=== PATIENT | male | born 1980 | race Caucasian/White ===

== ENCOUNTER 2016-12-16 15:29 | Emergency (ER) | payer MEDICAID ==
[2016-12-16 15:32] VITALS: BP 125/72; PULSE 68; RESP 16; TEMP 97.7; O2SAT 96
--- NOTE | 2016-12-16 16:13 | EDPHY ---
H & P Stated Complaint: Fell skateboarding and hurt R hand yesterday HPI/ROS: CHIEF COMPLAINT: Right hand pain, skateboarding injury HISTORY OF PRESENT ILLNESS: Patient was skateboarding yesterday when he fell on an outstretched hand. He noted sudden onset of pain at the base of the thumb. He said he felt as though his "thumb bone was sticking out, so I pushed it back in." He points to the 1st metacarpal when describing this. Mild-to- moderate pain at rest. More severe when palpating or moving. No radiating pain. No snuffbox tenderness. No pain in the ipsilateral elbow or shoulder. No head or neck injury. No radiating pain. No sensory changes. No back or chest pain. No other associated complaints or modifying factors. PRIOR ORTHO INJURIES: None ESTABLISHED ORTHOPEDIST: None REVIEW OF SYSTEMS: Ten systems reviewed and are negative unless otherwise noted in the HPI EXAMINATION General Appearance: Alert, no distress Cardiovascular: Pulses normal throughout. Symmetric radial pulses 2+. Brisk cap refill Neurological: A&O, sensory symmetric, strength symmetric. Normal 2 point sensation. Skin: Warm and dry, no rash. No lacerations abrasions or contusions. Extremities: Tenderness to palpation at the base of the right thumb over the MCP joint. There is also pain over the 1st metacarpal. There is no snuffbox tenderness. No crepitus. No deformity. Some edema over the base of the right thumb. No lacerations or abrasions. Range of motion of all fingers fully intact with good strength of the interossei. Range of motion of the right elbow and shoulder fully intact. Neurovascular intact distal to the injury Psychiatric: Mood and affect normal DIFFERENTIAL DIAGNOSES: Including but not limited to fracture, sprain, strain, hematoma, dislocation MDM: 4:00 p.m. Mechanical fall on the right hand yesterday. He has got pain at the base of the right thumb. I do not appreciate any fracture on the x-ray. The official interpretation is pending at this time. 4:20 p.m. X-ray has been read as no acute findings by radiologist. Discharged home with thumb spica. Referral to hand surgeon for definitive care. I do not suspect a scaphoid fracture given his history and exam, but he has been placed in the thumb spica for prophylaxis. Return to ER precautions discussed. He is comfortable this plan. He is discharged home neurovascular intact. ED Precautions: Worsening pain. Erythema, edema, cyanosis, pallor, paresthesia or anesthesia. SUPERVISION: This patient was independently evaluated without direct examination by the attending physician. Case was discussed with attending physician. Source: Patient Exam Limitations: No limitations - Personal History Current Tetanus Diphtheria and Acellular Pertussis (TDAP): Yes - Medical/Surgical History Other PMH: neg - Social History Smoking Status: Current every day smoker Constitutional: Initial Vital Signs Temperature (C) 97.7 F 12/16/16 15:30 Heart Rate 68 12/16/16 15:30 Respiratory Rate 16 12/16/16 15:30 Blood Pressure 125/72 H 12/16/16 15:30 O2 Sat (%) 96 12/16/16 15:30 O2 Delivery Mode Room Air Allergies/Adverse Reactions: No Known Allergies Allergy (Unverified 12/16/16 15:32) Home Medications: Medication Instructions Recorded Acetaminophen/Codeine 300/30Mg 1 each PO Q6 PRN #10 tab 12/16/16 [Tylenol #3 (*)] Medical Decision Making - Diagnostics Imaging Results: Imaging Impressions Hand X-Ray 12/16/16 15:33 Impression: Negative. No acute fracture. Departure - Departure Disposition: Home, Routine, Self-Care Clinical Impression: Thumb sprain Qualifiers: Encounter type: initial encounter Sprain of finger site: metacarpophalangeal joint Laterality: right Qualified Code(s): S63.641A - Sprain of metacarpophalangeal joint of right thumb, initial encounter Condition: Good Instructions: Skier's Thumb (ED), Finger Sprain (ED) Additional Instructions: 1. Keep the splint in place at all times until seen by Orthopedics 2. Return here for any numbness, weakness or increasing pain 3. [id number] ibuprofen or Aleve as needed Follow up with hand surgeon for definitive care Referrals: NONE *PRIMARY CARE P,. [Primary Care Provider] - As per Instructions Haile Mae MD [Medical Doctor] - As per Instructions Prescriptions: Acetaminophen/Codeine 300/30Mg [Tylenol #3 (*)] 1 each PO Q6 PRN #10 tab PRN Reason: Pain, Mild
== END 2016-12-16 16:30 | disposition home or self-care (01) ==
DX: S63.641A Sprain of metacarpophalangeal joint of right thumb, initial encounter (principal); F17.200 Nicotine dependence, unspecified, uncomplicated; V00.131A Fall from skateboard, initial encounter; Y99.8 Other external cause status; Y93.51 Activity, roller skating (inline) and skateboarding
CPT/HCPCS: L3908

== ENCOUNTER 2017-09-13 12:18 | Emergency (ER) | payer MEDICAID ==
[2017-09-13] MEDS ORDERED: NS 1,000 ML IV ONE (13:46)
--- NOTE | 2017-09-13 13:46 | EDPHY ---
H & P Stated Complaint: abdominal pain last 2-3 weeks, bloody stool last few days Time Seen by Provider: 09/13/17 13:45 HPI/ROS: CHIEF COMPLAINT: Abdominal pain, bloody stool x1 HISTORY OF PRESENT ILLNESS: The patient presents the ED with a 2-3 week history of generalized intermittent abdominal pain. The patient did have an episode of bloody stool x1 yesterday. The patient reports a remote history of colitis in his 20s. The patient is not under the care of a regular physician. He takes no regular medications. The patient denies any vomiting or alcohol use. The patient denies prior history of surgery. The patient reportedly has been using a fair amount of Advil for foot pain over the past month. REVIEW OF SYSTEMS: A comprehensive 10 point review of systems is otherwise negative aside from elements mentioned in the history of present illness. Source: Patient Exam Limitations: No limitations - Personal History Current Tetanus/Diphtheria Vaccine: Unsure Current Tetanus Diphtheria and Acellular Pertussis (TDAP): Unsure - Medical/Surgical History Hx Asthma: No Hx Chronic Respiratory Disease: No Hx Diabetes: No Hx Cardiac Disease: No Hx Renal Disease: No Hx Cirrhosis: No Hx Alcoholism: No Hx HIV/AIDS: No Hx Splenectomy or Spleen Trauma: No Other PMH: colitis - Social History Smoking Status: Current every day smoker - Physical Exam Exam: General Appearance: Alert, no distress Eyes: Pupils equal and round no pallor or injection ENT, Mouth: Mucous membranes moist Respiratory: There are no retractions, lungs are clear to auscultation Cardiovascular: Regular rate and rhythm Gastrointestinal: Minimal epigastric tenderness Neurological: 5/5 strength noted all 4 extremities Skin: Warm and dry, no rashes Musculoskeletal: Neck is supple nontender Extremities: symmetrical, full range of motion Constitutional: Initial Vital Signs Temperature (C) 37 C 09/13/17 12:24 Heart Rate 84 09/13/17 12:24 Respiratory Rate 20 09/13/17 12:24 Blood Pressure 127/88 H 09/13/17 12:24 O2 Sat (%) 96 09/13/17 12:24 O2 Delivery Mode Room Air Allergies/Adverse Reactions: No Known Allergies Allergy (Verified 09/13/17 12:24) Home Medications: Medication Instructions Recorded levOFLOXACIN [Levaquin] 500 mg PO DAILY #10 tab 09/13/17 metroNIDAZOLE [Flagyl 500 mg (RX)] 500 mg PO TID #30 tab 09/13/17 Medical Decision Making - Diagnostics Imaging Results: Imaging Impressions Abdomen CT 09/13/17 15:11 Impression: 1. Equivocal wall thickening in the descending colon, which could be related to colitis or underdistention. 2. Additional findings, as above. Findings discussed with Juarez Carcamo M.D., on September 13, 2017 at 1557. ED Course/Re-evaluation: The patient presents to the ED for evaluation of several weeks of intermittent abdominal pain and 1 episode of bloody stool. The patient was noted to be hemodynamically stable in the emergency department. He is in no acute distress. He has no evidence of critical anemia. I found his abdominal examination did demonstrate mild tenderness in the epigastric region. The patient was taken for CT scan of the abdomen pelvis which demonstrates equivocal colitis. The patient will be started on antibiotics. The patient has been instructed that he needs to follow up with Gastroenterology for further evaluation given his history of colitis in hematochezia. He has not had regular follow-up in the past 10 years. The patient is well-appearing and in no acute distress. There is no evidence of an acute surgical abdomen. The patient will be discharged home with customary aftercare instructions, Gastroenterology referral and return precautions. Differential Diagnosis: Differential diagnosis considered includes appendicitis, perforation, obstruction, colitis - Data Points Laboratory Results: Laboratory Results 09/13/17 14:15 09/13/17 14:15 09/13/17 09/13/17 14:15 14:15 WBC 6.39 10^3/uL 10^3/uL (3.80-9.50) RBC 4.92 10^6/uL 10^6/uL (4.40-6.38) Hgb 15.9 g/dL g/dL (13.7-17.5) Hct 45.0 % % (40.0-51.0) MCV 91.5 fL fL (81.5-99.8) MCH 32.3 pg pg (27.9-34.1) MCHC 35.3 g/dL g/dL (32.4-36.7) RDW 12.0 % % (11.5-15.2) Plt Count 266 10^3/uL 10^3/uL (150-400) MPV 8.8 fL fL (8.7-11.7) Neut % (Auto) 60.0 % % (39.3-74.2) Lymph % (Auto) 26.8 % % (15.0-45.0) [place] % (Auto) 8.9 % % (4.5-13.0) Eos % (Auto) 3.4 % % (0.6-7.6) Baso % (Auto) 0.6 % % (0.3-1.7) Nucleat RBC Rel Count 0.0 % % (0.0-0.2) Absolute Neuts (auto) 3.83 10^3/uL 10^3/uL (1.70-6.50) Absolute Lymphs (auto) 1.71 10^3/uL 10^3/uL (1.00-3.00) Absolute Monos (auto) 0.57 10^3/uL 10^3/uL (0.30-0.80) Absolute Eos (auto) 0.22 10^3/uL 10^3/uL (0.03-0.40) Absolute Basos (auto) 0.04 10^3/uL 10^3/uL (0.02-0.10) Absolute Nucleated RBC 0.00 10^3/uL 10^3/uL (0-0.01) Immature Gran % 0.3 % % (0.0-1.1) Immature Gran # 0.02 10^3/uL 10^3/uL (0.00-0.10) Sodium 143 mEq/L mEq/L (135-145) Potassium 4.1 mEq/L mEq/L (3.5-5.2) Chloride 105 mEq/L mEq/L (97-110) Carbon Dioxide 29 mEq/l mEq/l (22-31) Anion Gap 9 mEq/L mEq/L (8-16) BUN 16 mg/dL mg/dL (7-23) Creatinine 0.9 mg/dL mg/dL (0.7-1.3) Estimated GFR > 60 Glucose 78 mg/dL mg/dL (70-100) Calcium 9.0 mg/dL mg/dL (8.5-10.4) Total Bilirubin 0.5 mg/dL mg/dL (0.1-1.4) Conjugated Bilirubin 0.3 mg/dL mg/dL (0.0-0.5) Unconjugated Bilirubin 0.2 mg/dL mg/dL (0.0-1.1) AST 24 IU/L IU/L (17-59) ALT 33 IU/L IU/L (21-72) Alkaline Phosphatase 62 IU/L IU/L (38-126) Total Protein 6.8 g/dL g/dL (6.3-8.2) Albumin 4.1 g/dL g/dL (3.5-5.0) Lipase 187 IU/L IU/L (23-300) Medications Given: Discontinued Medications Sodium Chloride (Ns) 1,000 mls @ 0 mls/hr IV EDNOW ONE; Wide Open PRN Reason: Protocol Stop: 09/13/17 13:47 Last Admin: 09/13/17 14:16 Dose: 1,000 mls Departure - Departure Disposition: Home, Routine, Self-Care Clinical Impression: Colitis Condition: Good Instructions: Colitis (ED) Additional Instructions: 1. Please take antibiotics as directed for possible colitis. 2. Please avoid taking medications such is Motrin, Aleve and ibuprofen as this may be exacerbating your abdominal pain. 3. Given our history of colitis and bloody bowel movements I do recommend following up with our line appliance assembler as further workup may be indicated including a colonoscopy. Please contact their office tomorrow to schedule a follow-up visit. 4. Return to the ED for markedly worsening symptoms or other concerns. Referrals: Braden Shaw MD [Medical Doctor] - As per Instructions
[2017-09-13 14:19] VITALS: RESP 16; TEMP 97.7
[2017-09-13 14:34] LABS: PLATELET COUNT 266 10^3/uL (150-400)
[2017-09-13] MEDS ORDERED: IOPAMIDOL (ISOVUE-300) 100 ML BTL ONE (15:18)
[2017-09-13 16:48] VITALS: BP 138/100; PULSE 78; O2SAT 96
== END 2017-09-13 16:48 | disposition home or self-care (01) ==
DX: K52.9 Noninfective gastroenteritis and colitis, unspecified (principal); E86.9 Volume depletion, unspecified; F17.200 Nicotine dependence, unspecified, uncomplicated
CPT/HCPCS: Q9967